=== PATIENT | female | born 1960 | race Caucasian/White ===

== ENCOUNTER 2017-03-13 10:42 | Emergency (ER) | payer OTHER ==
[2017-03-13 10:53] VITALS: RESP 18; O2SAT 96
--- NOTE | 2017-03-13 11:07 | EDPHY ---
H & P Stated Complaint: L ankle/foot pain after injury HPI/ROS: CHIEF COMPLAINT: Fall, left ankle injury HISTORY OF PRESENT ILLNESS: Patient was on a stepladder here at work this morning when it broke. She says she landed on her left ankle and potentially inverted it. She noted a sudden onset of pain, more lateral than medial. It does radiate across the ankle. It is moderate to severe. No pain in the ipsilateral mid foot or heel. No pain in the ipsilateral proximal fibula. It is worse with palpation weight-bearing. Some improvement with nonweightbearing. Unable to walk on it due to the pain. No numbness or tingling. No injury elsewhere. No use of blood thinners. No previous surgical intervention on that extremity. No other associated complaints or modifying factors. PRIOR ORTHO INJURIES: Minor sprains ESTABLISHED ORTHOPEDIST: None REVIEW OF SYSTEMS: Ten systems reviewed and are negative unless otherwise noted in the HPI EXAMINATION General Appearance: Alert, no distress Cardiovascular: Pulses normal throughout. Symmetric DP and PT pulses. Brisk cap refill Neurological: A&O, sensory symmetric, strength symmetric. Normal proprioception of the great toe. Skin: Warm and dry, no rash. No petechiae, purpura, laceration or abrasion. Extremities: Tenderness to palpation of the left ankle medial and lateral malleoli. There is no crepitus or instability. No tenderness of the left midfoot. No tenderness of the left calcaneus. Range of motion is intact but painful. No tenderness of the left proximal fibula. Neurovascular intact distal to the ankle pain Psychiatric: Mood and affect normal DIFFERENTIAL DIAGNOSES: Including but not limited to sprain, fracture, fracture dislocation, strain, hematoma, contusion MDM: 11:00 a.m. Acute left ankle sprain with possible fracture. X-rays pending at this time. She is neurovascular intact in no acute distress. 12:00 p.m. x-ray is un remarkable for acute fracture. She will be treated for an ankle sprain. will provide Reynaldo boot. She is weight-bearing as tolerated. Follow up with primary care physician or Orthopedics for definitive care. Additionally , she will need to follow up with her [facility]. She is comfortable with this plan and discharged home neurovascular intact in stable condition. ED Precautions: Worsening pain. Erythema, edema, cyanosis, pallor, paresthesia or anesthesia. SUPERVISION: This patient was independently evaluated without direct examination by the attending physician. Case was discussed with attending physician. Source: Patient, Family Exam Limitations: No limitations - Personal History Current Tetanus Diphtheria and Acellular Pertussis (TDAP): Yes - Medical/Surgical History Other PMH: HTN. hysterectomy - Social History Smoking Status: Never smoked Constitutional: Initial Vital Signs Temperature (C) 98.2 F 03/13/17 10:45 Heart Rate 93 03/13/17 10:45 Respiratory Rate 18 03/13/17 10:45 Blood Pressure 132/86 H 03/13/17 10:45 O2 Sat (%) 96 03/13/17 10:45 O2 Delivery Mode Room Air Allergies/Adverse Reactions: No Known Allergies Allergy (Unverified 03/13/17 10:53) Home Medications: Medication Instructions Recorded Simvastatin [Zocor] 40 mg PO 03/13/17 Medical Decision Making - Diagnostics Imaging Results: Imaging Impressions Ankle X-Ray 03/13/17 11:02 Impression: Mild soft tissue swelling. No evidence for acute fracture. Departure - Departure Disposition: Home, Routine, Self-Care Clinical Impression: Ankle sprain Qualifiers: Encounter type: initial encounter Involved ligament of ankle: unspecified ligament Laterality: left Qualified Code(s): S93.402A - Sprain of unspecified ligament of left ankle, initial encounter Condition: Good Instructions: Ankle Sprain (ED) Additional Instructions: Ankle care as discussed. Weightbearing as tolerated. Follow up with Orthopedics for definitive care. Referrals: JESICA AMEZCUA [Primary Care Provider] - As per Instructions Khadar Stanley MD [Medical Doctor] - As per Instructions Stand Alone Forms: Work Comp Follow Up, Work Excuse
[2017-03-13 12:12] VITALS: BP 118/88; PULSE 96; TEMP 98.4
== END 2017-03-13 12:14 | disposition home or self-care (01) ==
DX: S93.402A Sprain of unspecified ligament of left ankle, initial encounter (principal); I10 Essential (primary) hypertension; W11.XXXA Fall on and from ladder, initial encounter
CPT/HCPCS: L4386